=== PATIENT | male | born 1990 | race Two or more races ===

== ENCOUNTER 2018-11-28 01:21 | Emergency (ER) | payer MEDICAID, OTHER ==
[~2018-11-28] VITALS: Ht 182.9 cm; Wt 99.8 kg
--- NOTE | 2018-11-28 01:39 | NUR ---
PT IS A/OX4, PRESENTS TO THE ER C/O ABD PAIN W/ HEMATURIA THAT BEGAN APPROXIMATELY 1-2 HOURS [employer] SAL[employer]. PT REPORTS RLQ & LLQ ABD PAIN IS PROVOKED UPON MOVEMENT, ACHING IN QUALITY, RADIATES DOWN INTO THE GROIN, 10/10, CONSTANT. ABD IS NON-DISTENDED, NON-TENDER. PT IS ALSO REPORTING FREQUENCY IN URINATION. VSS. PT DENIES C/P, SOB, N/V/D, DIZZINESS, HEADACHE.
--- NOTE | 2018-11-28 01:45 | NUR ---
PT IS HYPERTENSIVE UPON TRIAGE, ER MD AWARE.
--- NOTE | 2018-11-28 01:49 | NUR ---
GARETT SCHULER AT BEDSIDE FOR MSE.
[2018-11-28] MEDS ORDERED: KETOROLAC TROMETHAMINE 15 MG INJ IV ONE (02:00)
[2018-11-28] MEDS ORDERED: ONDANSETRON 4 MG/2 ML VIAL IV ONE (02:00)
[2018-11-28] MEDS ORDERED: IV NORMAL SALINE 1000 ML BAG IV ONE (02:00)
[2018-11-28] MEDS ORDERED: HYDROMORPHONE 1 MG/1 ML DISP.SYRIN IV ONE (02:00)
[2018-11-28] MEDS ORDERED: KETOROLAC TROMETHAMINE 60 MG INJ IM ONE (02:03)
[2018-11-28] MEDS ORDERED: HYDROMORPHONE 2 MG/1 ML DISP.SYRIN ONE (02:03)
[2018-11-28] MEDS ORDERED: ONDANSETRON 4 MG/2 ML VIAL ONE (02:03)
--- NOTE | 2018-11-28 02:08 | NUR ---
PT TAKEN TO RADIOLOGY FOR CT SCAN.
[2018-11-28 02:11] LABS: BASOPHILS # (AUTO) 0.1 K/uL (0.0-8.0); BASOPHILS % (AUTO) 0.5 % (0.0-2.0); EOSINOPHILS # (AUTO) 0.2 K/uL (0.0-0.7); EOSINOPHILS % (AUTO) 1.5 % (0.0-7.0); HEMATOCRIT 46.6 % (36.7-47.1); HEMOGLOBIN 15.7 g/dL (12.5-16.3); LYMPHOCYTES # (AUTO) 2.1 K/uL (20.0-40.0); LYMPHOCYTES % (AUTO) 16.3 % (20.5-51.5); MEAN CORPUSCULAR HEMOGLOBIN 29.7 uug (23.8-33.4); MEAN CORPUSCULAR HGB CONC 34 g/dL (32.5-36.3); MEAN CORPUSCULAR VOLUME 87.9 fL (73.0-96.2); MONOCYTES # (AUTO) 1.1 K/uL (2.0-10.0); MONOCYTES % (AUTO) 8.7 % (0.0-11.0); NEUTROPHILS # (AUTO) 9.5 K/uL (1.8-8.9); PLATELET COUNT (AUTO) 337 K/uL (152-348); RED BLOOD CELL COUNT(AUTO) 5.31 MIL/uL (4.06-5.63)
[2018-11-28 02:15] LABS: POTASSIUM 3.9 mmol/L (3.5-5.1)
--- NOTE | 2018-11-28 02:22 | NUR ---
PT BACK IN ER FROM RADIOLOGY.
[2018-11-28 02:27] LABS: BILIRUBIN,DIRECT 0.2 mg/dL (0.0-0.2); BILIRUBIN,TOTAL 0.9 mg/dL (0.2-1.0)
[2018-11-28 04:52] VITALS: BP 135/91
--- NOTE | 2018-11-28 05:05 | NUR ---
Patient discharged to home in stable conditon. Written and verbal after care instructions given. Patient verbalizes understanding of instructions. Pt denies pain or discomfort at this time.
== END 2018-11-28 05:07 | disposition home or self-care (01) ==
LOC: ER 01:21
DX: N20.0 Calculus of kidney (principal)
CPT/HCPCS: 36415; 74176; 80048; 80076; 83690; 85025; 85730; 96374; 96375; 99284; J1170; J1885; J2405; A4663; J7030